=== PATIENT | female | born 1995 | race Hispanic/Latino ===

== ENCOUNTER 2021-08-03 13:47 | Emergency (ER) | payer BC, MEDICAID, OTHER ==
[~2021-08-03] VITALS: Ht 157.5 cm; Wt 51.0 kg
[2021-08-03 14:35] LABS: APPEARANCE,URINE CLEAR (CLEAR); BILIRUBIN,URINE NEGATIVE (NEGATIVE); GLUCOSE, URINE (UA) NEGATIVE (NEGATIVE); KETONES,URINE NEGATIVE (NEGATIVE); LEUKOCYTE ESTERASE ,URINE NEGATIVE (NEGATIVE); NITRATE,URINE NEGATIVE (NEGATIVE); OCCULT BLOOD,URINE TRACE-INTACT (NEGATIVE); PH,URINE 6.5 (5.0-8.0); PROTEIN,URINE NEGATIVE (NEGATIVE); UROBILINOGEN,URINE 0.2 mg/dL (0.2-1.0)
[2021-08-03 14:38] LABS: HCG,QUAL RESULT NEGATIVE (NEGATIVE)
[2021-08-03 14:39] LABS: COLOR,URINE Straw (YELLOW)
[2021-08-03 14:49] LABS: BACTERIA,URINE Few /HPF (None Seen); RBC,URINE None Seen /HPF (0-1); SQUAMOUS EPITHELIAL CELL,UR 0-2 /HPF (0-2); WBC,URINE None Seen /HPF (0-1)
[2021-08-03] MEDS ORDERED: FLUC150T PO (15:18)
[2021-08-03] MEDS ORDERED: CEPH500B PO (15:18)
[2021-08-03 15:22] VITALS: BP 122/80
== END 2021-08-03 15:23 | disposition home or self-care (01) ==
LOC: EDH 13:49
DX: R10.9 Unspecified abdominal pain (principal); R30.0 Dysuria
CPT/HCPCS: 81001; 81025; 87088